=== PATIENT | female | born 1955 | race American Indian/Alaskan Native ===

== ENCOUNTER 2021-10-22 18:52 | Emergency (ER) | payer SELFPAY ==
[2021-10-22 21:06] VITALS: BP 133/91
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
--- NOTE | 2021-10-23 00:21 | XRay Report ---
CHEST 2 VIEWS INDICATION / CLINICAL INFORMATION: chest pain. COMPARISON: None available. FINDINGS: SUPPORT DEVICES: None. HEART / MEDIASTINUM: No significant abnormality. LUNGS / PLEURA: No significant pulmonary abnormality. No significant pleural effusion. No pneumothora x. ADDITIONAL FINDINGS: No significant additional findings. IMPRESSION: 1. No acute abnormality of the chest. Signer Name: Reji Oliver MD Signed: 10/23/2021 12:17 AM Workstation Name: [id number]
--- NOTE | 2021-10-23 00:23 | XRay Report ---
CERVICAL SPINE 2 VIEWS INDICATION: Neck pain. COMPARISON: No relevant prior imaging study available. FINDINGS: This exam is limited by lack of a lateral view of the cervical spine. VERTEBRAE: No acute fracture. Normal alignment. DISC SPACES: No significant abnormality. FACET JOINTS: No significant abnormality. SOFT TISSUES: No significant abnormality. ADDITIONAL FINDINGS: No additional significant findings. IMPRESSION: Limited exam without acute findings. Signer Name: Reji Oliver MD Signed: 10/23/2021 12:19 AM Workstation Name: [id number]
== END 2021-10-23 01:46 | disposition home or self-care (01) ==
LOC: ED 18:52
DX: S16.1XXA Strain of muscle, fascia and tendon at neck level, initial encounter (principal); V89.2XXA Person injured in unspecified motor-vehicle accident, traffic, initial encounter; Y93.89 Activity, other specified; Y92.89 Other specified places as the place of occurrence of the external cause; Y99.8 Other external cause status
CPT/HCPCS: 71046; 72040; 99283